=== PATIENT | male | born 1995 ===

== ENCOUNTER 2022-05-13 22:28 | Emergency (ER) | payer OTHER, MEDICAID, SELFPAY ==
[2022-05-13 22:35] VITALS: BP 144/86; PULSE 90; RESP 18; TEMP 36.7; O2SAT 94; BMI 23.2
--- NOTE | 2022-05-13 22:40 | DI.CT.S_ITS ---
PROCEDURE: CT HEAD/BRAIN WO CON INDICATIONS: possible seizure TECHNIQUE: Noncontrast 4.5 mm thick angled axial sections acquired from the foramen magnum to the vertex, with coronal and sagittal reformats. For radiation dose reduction, the following was used: automated exposure control, adjustment of mA and/or kV according to patient size. COMPARISON: None. FINDINGS: Image quality: Excellent. CSF spaces: Basal cisterns are patent. No extra-axial fluid collections. Ventricles are normal in size and shape. Brain: No midline shift. No intracranial masses or hemorrhage. Koo-white matter interface is normal. Skull and face: Calvarium and visualized facial bones are intact, without suspicious lesions. Sinuses: Visualized sinuses and mastoids are clear. IMPRESSION: Normal for age, source of current seizure symptoms is not seen. Dictated by: Elan Warren M.D. on 05/13/2022 at 23:22 Approved by: Elan Warren M.D. on 05/13/2022 at 23:22
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
[2022-05-13 22:41] VITALS: BP 131/78; PULSE 96; RESP 19; O2SAT 95
[2022-05-13 22:55] VITALS: BP 135/83; PULSE 97; RESP 22; O2SAT 98
[2022-05-13 22:56] LABS: Add Manual Diff / Slide Review NO; Basophils Absolute Auto 100 /uL (0-100); Basophils Percent Auto 0.5 % (0-2); Eosinophils Absolute Auto 100 /uL (0-450); Hematocrit 38.7 % (41-53); Hemoglobin 12.9 g/dL (13.5-17.5); Lymphocytes Absolute Auto 600 /uL (1100-4500); Lymphocytes Percent Auto 5.3 % (25-40); Mean Corpuscular HGB Conc 33.4 % (30-36); Mean Corpuscular Hemoglobin 31.4 PG (26-34); Monocytes Absolute Auto 300 /uL (0-900); Monocytes Percent Auto 2.6 % (3-14); Neutrophils Absolute Auto 10500 /uL (1500-7000); Neutrophils Percent Auto 90.6 % (50-75); Platelet Count 250 X10^3/uL (150-400); Red Blood Cell Count 4.12 X10^6/uL (4.5-5.9); Red Cell Distribution Width 14.7 % (11.6-14.8); White Blood Cell Count 11.5 X10^3/uL (4.5-11.0)
[2022-05-13 23:00] VITALS: BP 134/79; PULSE 94; RESP 21; O2SAT 98
[2022-05-13 23:01] LABS: Lactate (Lactic Acid) 2.7 mmol/L (0.7-2.1)
[2022-05-13 23:04] LABS: Alanine Aminotransferase 110 IU/L (<50); Albumin 4.5 g/dL (3.5-5.0); Albumin Globulin Ratio 1.5 (1.0-2.8); Alkaline Phosphatase 78 U/L (38-126); Aspartate Aminotransferase 186 IU/L (17-59); BUN Creatinine Ratio 14.1 (6-22); Bilirubin Total 0.6 mg/dL (0.2-1.3); Blood Urea Nitrogen 11 mg/dL (9-20); Calcium 9.8 mg/dL (8.4-10.2); Carbon Dioxide 23 mmol/L (22-32); Chloride 99 mmol/L (98-107); Estimated Glomerular Filt Rate > 60 mL/min (>60); Ethanol (ETOH) < 10 mg/dL; Globulin 3.1 g/dL (1.7-4.1); Glucose 94 mg/dL (70-100); HEMOLYSIS 18 (0-50); Lipase 99 U/L (23-300); Potassium 3.7 mmol/L (3.4-5.1); Sodium 136 mmol/L (137-145); Total Protein 7.6 g/dL (6.3-8.2)
[2022-05-13 23:05] LABS: Ur Creatinine Normal (Normal)
[2022-05-13 23:06] LABS: UR Morphine/Opiate cutoff 300 Negative (Negative); Ur Specific Gravity Normal (Normal); Urine Amphetamines Negative (Negative); Urine Barbiturates Negative (Negative); Urine Benzodiazepines Positive (Negative); Urine Cocaine Negative (Negative); Urine MDMA Negative (Negative); Urine Methadone Negative (Negative); Urine Methamphetamines Negative (Negative); Urine Oxycodone Negative (Negative); Urine Phencyclidine Negative (Negative); Urine Tetrahydrocannabinol Negative (Negative); Urine Tricyclic Antidepressant Negative (Negative); Urine pH Normal (Normal)
[2022-05-13 23:30] VITALS: BP 119/75; PULSE 90; RESP 20; O2SAT 96
[2022-05-13] MEDS: PHENobarbital 65 MG/ML VIAL 130 MG IV (23:58)
[2022-05-14] VITALS (30 sets, daily range): BP systolic 102–152; BP diastolic 56–107; PULSE 62–110; RESP 12–26; O2SAT 93–100
[2022-05-14 00:16] LABS: Acetaminophen < 10 ug/mL (10-30); Salicylate < 1.0 mg/dL (<20)
[2022-05-14 00:48] LABS: Reflexed Lactate in 2 Hours Y
[2022-05-14] MEDS: LORazepam 2 MG/ML INJ 1 MG IV (00:58)
[2022-05-14 01:44] LABS: Lactate 2HR (Lactic Acid Rflx) 0.9 mmol/L (0.7-2.1)
[2022-05-14] MEDS: PHENobarbital 65 MG/ML VIAL 130 MG IV (08:24)
[2022-05-14] MEDS: chlordiazePOXIDE 25 MG CAPSULE 50 MG PO (10:59)
--- NOTE | 2022-05-14 11:48 | PC.NURSE ---
Pt laying in stretcher, opens eyes spontaneously, aaox4/4, breathing even and unlabored, repositioning self independently. court monitor, oxygen saturation, and blood pressure cuff in place. Seizure pads in place on stretcher. SAND SCREENER at bedside.
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
== END 2022-05-14 12:40 | disposition home or self-care (01) ==
PROVIDERS: Emergency Medicine; Emergency Provider Emergency Medicine
DX: F10.139 Alcohol abuse with withdrawal, unspecified (principal)
CPT/HCPCS: 70450; 80053; 80305; 80320; 80329; 83605; 83690; 84146; 85025; 96374; 96375; 96376; 99284; G0480; J2060; J2560